=== PATIENT | male | born 1930 | race Caucasian/White ===

== ENCOUNTER 2018-10-18 15:19 | Inpatient (IN) ==
[2018-10-18] MEDS ORDERED: LABETALOL 20 MG/4 ML SYRINGE IV ONE ×2 (16:11→16:12)
[2018-10-18] MEDS ORDERED: PROPOFOL 1,000 MG/100 ML BOTTLE IV ONE (16:16)
[2018-10-18] MEDS ORDERED: LIDOCAINE 100 MG/5 ML SYRINGE ONE (16:16)
[2018-10-18] MEDS ORDERED: ATROPINE 1 MG/10 ML SYRINGE ONE (16:16)
[2018-10-18] MEDS ORDERED: LIDOCAINE 100 MG/5 ML SYRINGE IV STA (16:17)
[2018-10-18] MEDS ORDERED: ATROPINE 1 MG/10 ML SYRINGE IV STA (16:18)
[2018-10-18] MEDS ORDERED: ETOMIDATE 20 MG/10 ML VIAL IV STA (16:19)
[2018-10-18] MEDS ORDERED: ROCURONIUM 100 MG/10 ML VIAL IV STA (16:19)
[2018-10-18] MEDS: PROPOFOL 1,000 MG/100 ML BOTTLE IV SCH ×3 (16:37→20:36)
[2018-10-18] MEDS ORDERED: ETOMIDATE 20 MG/10 ML VIAL IV ONE (16:45)
[2018-10-18] MEDS ORDERED: ROCURONIUM 100 MG/10 ML VIAL IV ONE (16:45)
[2018-10-18] MEDS ORDERED: ALBUTEROL 2.5 MG/3 ML NEB RESP TX PRN (17:46)
[2018-10-18] MEDS ORDERED: ONDANSETRON 4 MG/2 ML VIAL IV PRN (17:46)
[2018-10-18] MEDS ORDERED: niCARdipine 25 MG/10 ML VIAL IV ONE (17:48)
[2018-10-18] MEDS: niCARdipine INJ 25 MG in SODIUM CHLORIDE 0.9% 240 ML IV PRN (17:55)
[2018-10-18] MEDS: FAMOTIDINE 20 MG/2 ML VIAL IV SCH (20:06)
[2018-10-18] MEDS: ALBUTEROL/IPRATROPIUM 3 ML NEB RESP TX SCH (20:35)
[2018-10-19] MEDS: PROPOFOL 1,000 MG/100 ML BOTTLE IV SCH ×6 (00:41→20:15)
[2018-10-19] MEDS: ALBUTEROL/IPRATROPIUM 3 ML NEB RESP TX SCH ×4 (01:22→18:08)
[2018-10-19] MEDS: niCARdipine INJ 25 MG in SODIUM CHLORIDE 0.9% 240 ML IV PRN ×5 (01:46→21:58)
[2018-10-19] MEDS: FAMOTIDINE 20 MG/2 ML VIAL IV SCH ×2 (05:54→18:40)
[2018-10-19 15:03] LABS: Basophils % 0.1 % (0.0-0.8); Hematocrit 33.6 VOL% (42.0-52.0); Immature Granulocytes % 0.7 %; Immature Granulocytes Absolute 0.09 #; Lymphocytes # 0.6 10*3/uL (1.4-4.0); Lymphocytes % 4.4 % (21.2-54.2); Mean Corpuscular HGB Conc 32.7 GM/DL (32-36); Mean Corpuscular Volume 93.9 FL (87-102); Mean Platelet Volume 10.7 FL (9.6-12.0); Monocytes % 8.1 % (1.7-12.7); Neutrophils % 86.7 % (38.7-73.9); Platelet Count 202 T/CUMM (130-400); Red Blood Count 3.58 MC/CUMM (3.8-5.5); Red Cell Distribution Width 14.1 % (9.3-17.3); White Blood Count 13.4 T/CUMM (4-12)
[2018-10-19 15:15] LABS: ABG Base Excess 1.1 MMOL/L (-2.5-2.5); ABG HCO3 23.9 MMOL/L (20-26); ABG PCO2 32.1 MM HG (35-48); ABG PO2 365.1 MM HG (80-95); ABG TCO2 24.9 MMOL/L (23-27); Allen Test Positive; Pt O2 Delivery Device Ventilator
[2018-10-19 15:23] LABS: Bilirubin,Total 0.5 MG/DL (0.2-1.0); Calcium 8.2 MG/DL (8.5-10.1); Hypochromasia 1+; Lymphocytes 7 % (20-55); Osmolality,Calculated 285.4 MOS/KG (273-304); Platelet Estimate Adequate; Risk Ratio 3.21; Segmented Neutrophils 91 % (50-85); Total Cells Counted 100; Total Protein 6.3 G/DL (6.4-8.3); VLDL CHOLESTEROL 31.8 MG/DL
[2018-10-19 15:24] LABS: Microcytosis Slight
[2018-10-19] MEDS: MANNITOL 20 GM in PREMIX 1 EACH IV SCH (18:45)
[2018-10-19] MEDS: POTASSIUM CHLORIDE 20 MEQ/15 ML UDCUP PER TUBE SCH (21:58)
[2018-10-20] MEDS: POTASSIUM CHLORIDE 20 MEQ/15 ML UDCUP PER TUBE SCH ×2 (00:15→02:52)
[2018-10-20] MEDS: ALBUTEROL/IPRATROPIUM 3 ML NEB RESP TX SCH ×4 (00:40→19:07)
[2018-10-20] MEDS: PROPOFOL 1,000 MG/100 ML BOTTLE IV SCH ×5 (02:15→18:09)
[2018-10-20] MEDS: niCARdipine INJ 25 MG in SODIUM CHLORIDE 0.9% 240 ML IV PRN ×4 (02:47→18:49)
[2018-10-20 03:43] LABS: Basophils % 0.1 % (0.0-0.8); Hematocrit 32.2 VOL% (42.0-52.0); Hemoglobin 10.6 GM/DL (14.0-18.0); Immature Granulocytes % 0.6 %; Immature Granulocytes Absolute 0.08 #; Lymphocytes # 0.6 10*3/uL (1.4-4.0); Lymphocytes % 4.1 % (21.2-54.2); Mean Corpuscular HGB Conc 32.9 GM/DL (32-36); Mean Corpuscular Volume 93.1 FL (87-102); Mean Platelet Volume 11.7 FL (9.6-12.0); Monocytes % 8.8 % (1.7-12.7); Neutrophils % 86.4 % (38.7-73.9); Platelet Count 154 T/CUMM (130-400); Red Blood Count 3.46 MC/CUMM (3.8-5.5); Red Cell Distribution Width 14.3 % (9.3-17.3); White Blood Count 14.2 T/CUMM (4-12)
[2018-10-20 04:06] LABS: Albumin 2.9 G/DL (3.4-5.0); Bilirubin,Total 0.8 MG/DL (0.2-1.0); Calcium 8.3 MG/DL (8.5-10.1); Osmolality,Calculated 289.3 MOS/KG (273-304); Total Protein 6.1 G/DL (6.4-8.3)
[2018-10-20 04:45] LABS: ABG Base Excess 0.4 MMOL/L (-2.5-2.5); ABG HCO3 24.8 MMOL/L (20-26); ABG PCO2 32.7 MM HG (35-48); ABG PH 7.466 (7.35-7.45)
[2018-10-20 04:46] LABS: Pt O2 Delivery Device Ventilator
[2018-10-20] MEDS ORDERED: MORPHINE 4 MG/1 ML VIAL IV PRN (04:55)
[2018-10-20] MEDS: FAMOTIDINE 20 MG/2 ML VIAL IV SCH ×2 (05:14→18:13)
[2018-10-20] MEDS: MANNITOL 20 GM in PREMIX 1 EACH IV SCH ×3 (05:18→20:24)
[2018-10-20 05:45] LABS: Lymphocytes 2 % (20-55); Myelocytes 1 %; Platelet Estimate Adequate; Segmented Neutrophils 90 % (50-85); Total Cells Counted 100
[2018-10-20] MEDS ORDERED: DILTIAZEM 50 MG/10 ML VIAL IV ONE (19:32)
[2018-10-20] MEDS ORDERED: DILTIAZEM 25 MG/5 ML VIAL IV ONE (19:34)
[2018-10-20] MEDS: dilTIAZem Drip 125 MG/125 ML PREMIX IV SCH (20:57)
[2018-10-20] MEDS ORDERED: METOPROLOL TARTRATE 5 MG/5 ML VIAL IV ONE (22:49)
[2018-10-21] MEDS: PROPOFOL 1,000 MG/100 ML BOTTLE IV SCH ×3 (00:15→21:09)
[2018-10-21] MEDS: ALBUTEROL/IPRATROPIUM 3 ML NEB RESP TX SCH ×4 (01:14→19:49)
[2018-10-21] MEDS: niCARdipine INJ 25 MG in SODIUM CHLORIDE 0.9% 240 ML IV PRN (02:51)
[2018-10-21 04:05] LABS: Basophils % 0.1 % (0.0-0.8); Hematocrit 31.8 VOL% (42.0-52.0); Hemoglobin 10.3 GM/DL (14.0-18.0); Immature Granulocytes % 1.5 %; Immature Granulocytes Absolute 0.23 #; Lymphocytes # 0.6 10*3/uL (1.4-4.0); Lymphocytes % 4.1 % (21.2-54.2); Mean Corpuscular HGB Conc 32.4 GM/DL (32-36); Mean Corpuscular Volume 93.5 FL (87-102); Mean Platelet Volume 11.9 FL (9.6-12.0); Monocytes % 8.3 % (1.7-12.7); Platelet Count 196 T/CUMM (130-400); White Blood Count 14.9 T/CUMM (4-12)
[2018-10-21 04:21] LABS: ABG Base Excess 0.2 MMOL/L (-2.5-2.5); ABG HCO3 23.1 MMOL/L (20-26); ABG Oxygen Saturation 98.1 % (95-100); ABG PCO2 31.7 MM HG (35-48); ABG PH 7.481 (7.35-7.45); ABG PO2 121.8 MM HG (80-95); ABG TCO2 24.1 MMOL/L (23-27); Allen Test Positive; Pt O2 Delivery Device Ventilator
[2018-10-21] MEDS: dilTIAZem Drip 125 MG/125 ML PREMIX IV SCH ×4 (04:29→21:10)
[2018-10-21 04:33] LABS: Albumin 2.5 G/DL (3.4-5.0); Bilirubin,Total 0.8 MG/DL (0.2-1.0); Calcium 8.1 MG/DL (8.5-10.1); Osmolality,Calculated 291.5 MOS/KG (273-304); Total Protein 6.2 G/DL (6.4-8.3)
[2018-10-21 04:47] LABS: Hypochromasia Slight; Platelet Estimate Adequate; Polychromasia Few
[2018-10-21] MEDS: FAMOTIDINE 20 MG/2 ML VIAL IV SCH ×2 (05:28→18:29)
[2018-10-21] MEDS: MANNITOL 20 GM in PREMIX 1 EACH IV SCH ×3 (05:30→20:15)
[2018-10-22] MEDS: PROPOFOL 1,000 MG/100 ML BOTTLE IV SCH ×5 (00:34→20:08)
[2018-10-22] MEDS: ALBUTEROL/IPRATROPIUM 3 ML NEB RESP TX SCH ×4 (01:27→19:35)
[2018-10-22 03:35] LABS: ABG Base Excess 1.2 MMOL/L (-2.5-2.5); ABG HCO3 23.8 MMOL/L (20-26); ABG Oxygen Saturation 98.2 % (95-100); ABG PCO2 31.2 MM HG (35-48); ABG PH 7.501 (7.35-7.45); ABG TCO2 24.8 MMOL/L (23-27); Allen Test Positive; Pt O2 Delivery Device Ventilator
[2018-10-22 04:39] LABS: Basophils % 0.2 % (0.0-0.8); Eosinophils % 0.1 % (0.00-10.9); Hematocrit 31.9 VOL% (42.0-52.0); Hemoglobin 10.4 GM/DL (14.0-18.0); Immature Granulocytes % 1.7 %; Immature Granulocytes Absolute 0.23 #; Lymphocytes # 0.9 10*3/uL (1.4-4.0); Lymphocytes % 6.7 % (21.2-54.2); Mean Corpuscular HGB Conc 32.6 GM/DL (32-36); Mean Corpuscular Volume 93.3 FL (87-102); Mean Platelet Volume 11.5 FL (9.6-12.0); Monocytes % 11.2 % (1.7-12.7); Neutrophils % 80.1 % (38.7-73.9); Platelet Count 234 T/CUMM (130-400); Red Blood Count 3.42 MC/CUMM (3.8-5.5); Red Cell Distribution Width 14.7 % (9.3-17.3); White Blood Count 13.2 T/CUMM (4-12)
[2018-10-22 04:50] LABS: Albumin 2.3 G/DL (3.4-5.0); Bilirubin,Total 0.9 MG/DL (0.2-1.0); Calcium 8.4 MG/DL (8.5-10.1); Osmolality,Calculated 289.7 MOS/KG (273-304); Total Protein 6.1 G/DL (6.4-8.3)
[2018-10-22] MEDS: dilTIAZem Drip 125 MG/125 ML PREMIX IV SCH ×4 (05:03→22:22)
[2018-10-22] MEDS: FAMOTIDINE 20 MG/2 ML VIAL IV SCH ×2 (05:16→18:34)
[2018-10-22] MEDS: MANNITOL 20 GM in PREMIX 1 EACH IV SCH ×3 (05:19→20:21)
[2018-10-22 17:35] LABS: ABG Base Excess 2.1 MMOL/L (-2.5-2.5); ABG HCO3 26.3 MMOL/L (20-26); ABG PCO2 33.1 MM HG (35-48); ABG PH 7.488 (7.35-7.45); ABG TCO2 22.4 MMOL/L (23-27); Pt O2 Delivery Device Ventilator
[2018-10-23] MEDS: ALBUTEROL/IPRATROPIUM 3 ML NEB RESP TX SCH ×4 (00:22→21:04)
[2018-10-23] MEDS ORDERED: METOPROLOL TARTRATE 5 MG/5 ML VIAL IV ONE (01:13)
[2018-10-23] MEDS: PROPOFOL 1,000 MG/100 ML BOTTLE IV SCH ×2 (01:31→08:11)
[2018-10-23] MEDS ORDERED: ACETAMINOPHEN 325 MG TABLET PO PRN (01:37)
[2018-10-23 04:08] LABS: ABG Base Excess 1.1 MMOL/L (-2.5-2.5); ABG HCO3 23.4 MMOL/L (20-26); ABG Oxygen Saturation 98.1 % (95-100); ABG PCO2 30.7 MM HG (35-48); ABG PO2 118.9 MM HG (80-95); ABG TCO2 24.3 MMOL/L (23-27)
[2018-10-23 04:09] LABS: Allen Test Positive; Pt O2 Delivery Device Ventilator
[2018-10-23 04:38] LABS: Basophils % 0.2 % (0.0-0.8); Eosinophils % 0.1 % (0.00-10.9); Hematocrit 32.2 VOL% (42.0-52.0); Hemoglobin 10.1 GM/DL (14.0-18.0); Immature Granulocytes % 1.3 %; Immature Granulocytes Absolute 0.16 #; Lymphocytes # 0.8 10*3/uL (1.4-4.0); Lymphocytes % 6.5 % (21.2-54.2); Mean Corpuscular HGB Conc 31.4 GM/DL (32-36); Mean Corpuscular Volume 95.5 FL (87-102); Mean Platelet Volume 11.4 FL (9.6-12.0); Monocytes % 8.6 % (1.7-12.7); Neutrophils % 83.3 % (38.7-73.9); Platelet Count 218 T/CUMM (130-400); Red Blood Count 3.37 MC/CUMM (3.8-5.5); Red Cell Distribution Width 14.6 % (9.3-17.3); White Blood Count 12.6 T/CUMM (4-12)
[2018-10-23 05:01] LABS: Albumin 2.2 G/DL (3.4-5.0); Bilirubin,Total 0.4 MG/DL (0.2-1.0); Calcium 8.8 MG/DL (8.5-10.1); Osmolality,Calculated 290.5 MOS/KG (273-304); Total Protein 5.8 G/DL (6.4-8.3)
[2018-10-23 05:10] LABS: Band Neutrophils 1 % (0-10); Hypochromasia 1+; Lymphocytes 7 % (20-55); Ovalocytes Slight; Platelet Estimate Adequate; Segmented Neutrophils 86 % (50-85); Total Cells Counted 100
[2018-10-23] MEDS: FAMOTIDINE 20 MG/2 ML VIAL IV SCH ×2 (05:30→20:56)
[2018-10-23] MEDS: MANNITOL 20 GM in PREMIX 1 EACH IV SCH ×2 (05:31→15:00)
[2018-10-23] MEDS: dilTIAZem Drip 125 MG/125 ML PREMIX IV SCH ×2 (06:18→16:45)
[2018-10-23] MEDS: MORPHINE 4 MG/1 ML VIAL IV PRN ×3 (19:25→22:28)
[2018-10-24] MEDS: dilTIAZem Drip 125 MG/125 ML PREMIX IV SCH (00:22)
[2018-10-24] MEDS: MANNITOL 20 GM in PREMIX 1 EACH IV SCH ×2 (00:22→06:12)
[2018-10-24] MEDS: MORPHINE 4 MG/1 ML VIAL IV PRN ×7 (00:30→22:06)
[2018-10-24] MEDS: ALBUTEROL/IPRATROPIUM 3 ML NEB RESP TX SCH ×2 (01:00→07:56)
[2018-10-24] MEDS: FAMOTIDINE 20 MG/2 ML VIAL IV SCH (06:12)
[2018-10-25] MEDS: MORPHINE 4 MG/1 ML VIAL IV PRN ×8 (04:21→20:20)
[2018-10-26] MEDS: MORPHINE 4 MG/1 ML VIAL IV PRN ×4 (01:59→10:24)
[2018-10-26 08:18] VITALS: BP 118/95
[2018-10-26] MEDS ORDERED: SCOPOLAMINE 1.5 MG PATCH TRANSDERM SCH (11:08)
[2018-10-26] MEDS ORDERED: ACETAMINOPHEN 650 MG SUPP RECTAL PRN (11:11)
[2018-10-26] MEDS ORDERED: MORPHINE 10 MG/5 ML UDCUP PO PRN (11:12)
[2018-10-26] MEDS ORDERED: LORazepam 2 MG/1 ML VIAL IV PRN (11:13)
== END 2018-10-26 11:30 | disposition expired | DRG 64 ==
LOC: EDUNIT# → EDBD → N.ED 15:19 → N.EDINP 17:46 → SUATTDRO 17:46 → N.CC 18:47 → N.4E 10-25 20:49
PROVIDERS: ADMIT Internal Medicine; ATTEND Internal Medicine